=== PATIENT | male | born 1980 | race Caucasian/White ===

== ENCOUNTER 2016-11-05 13:57 | Outpatient (CLI) | payer BC ==
[~2016-11-05 13:57] MED LIST: ASPI-266 PO; ELVI1TAB PO; MULT-517 PO; NF-ESOM40C PO; OFLO5DRO7 EACH EAR
== END 2016-11-05 14:45 | disposition home or self-care (01) ==
LOC: SLEEP 13:57
PROVIDERS: ATTEND Internal Medicine Cardiovascular Disease
DX: G47.33 Obstructive sleep apnea (adult) (pediatric) (principal); I10 Essential (primary) hypertension

== ENCOUNTER 2016-12-03 20:45 | Outpatient (CLI) | payer BC ==
--- OUTSIDE RECORDS SUMMARY | 2016-12-03 20:55 | XMS REPORT | Continuity of Care Document ---
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 Medications Current Home Medications Medication Dose Units Route Directions Days/Qty Instructions Start Date Elvitegr/Cobicist/Emtric/Tenof 1 Each 1 Each Oral Daily 01/28/15 Esomeprazole Magnesium 40 Mg 40 Mg Oral Twice A Day 30 01/28/15 Aspirin 81 Mg 81 Mg Oral Daily 01/28/15 Multivitamins 1 Tab 1 Tab Oral Daily 01/28/15 Ofloxacin 5 Ml 3 Drops Each Ear Twice A Day 5 Days 01/30/15 Social History Social History Problem Response Recorded Date/Time Alcohol Use Denies Use 01/30/2015 7:47am Recreational Drug Use No 01/30/2015 7:47am Sexually Transmitted Disease No 01/30/2015 7:47am HIV/AIDS Yes 01/30/2015 7:47am Sexually Transmitted Disease No 01/30/2015 7:47am Hospital Discharge Instructions No hospital discharge instructions. Plan of Care Discharge Date 11/05/16 2:45pm Prescriptions See Medication Section Functional Status No functional status results. Allergies, Adverse Reactions, Alerts Allergen Type Severity Reaction Status Last Updated NSAIDS (Non-Steroidal Anti-Inflammatory Drug) ([id number]) Allergy Unknown Active 01/28/15 azithromycin ([id number]) Allergy Unknown ITCHINGS, RASH, HIVES Active Immunizations No immunization records. Vital Signs No known vital signs results. Results No known relevant diagnostic tests, laboratory data and/or discharge summary. Procedures No known history of procedures. Encounters Encounter Location Arrival/Admit Date Discharge/Depart Date Attending Provider Departed Clinic [facility] 11/05/16 1:57pm 11/05/16 2: 45pm LEANDRO ARENAS MD
== END 2016-12-04 06:05 | disposition home or self-care (01) ==
LOC: SLEEP 20:45
PROVIDERS: ATTEND Internal Medicine Cardiovascular Disease
DX: G47.33 Obstructive sleep apnea (adult) (pediatric) (principal); R06.83 Snoring; I10 Essential (primary) hypertension
CPT/HCPCS: 95811

== ENCOUNTER 2016-12-18 16:31 | Emergency (ER) | payer BC ==
[~2016-12-18] VITALS: Ht 175.3 cm; Wt 113.4 kg
--- OUTSIDE RECORDS SUMMARY | 2016-12-18 16:35 | XMS REPORT | Continuity of Care Document ---
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 Name Role Phone SARAH JAIMES DO PCP Insurance Providers Payer Name Policy Number Subscriber Name Relationship [facility] [id number] Lui Barry 18 Self / Same As Patient Advance Directives Directive Response Recorded Date/Time Advance Directives No 01/30/15 7:47am Health Care Power of Mortgage Processing Clerk No 01/30/15 7:47am Organ Donor No 01/30/15 [...] Status Last Updated NSAIDS (Non-Steroidal Anti-Inflammatory Drug) ([id number]) Allergy Unknown Active 01/28/15 azithromycin ([id number]) Allergy Unknown ITCHINGS, RASH, HIVES Active Immunizations No immunization records. Vital Signs No known vital signs results. Results No known relevant diagnostic tests, laboratory data and/or discharge summary. Procedures No known history of procedures. Encounters Encounter Location Arrival/Admit Date Discharge/Depart Date Attending Provider Departed Clinic [facility] 11/05/16 1:57pm 11/05/16 2: 45pm LEANDRO ARENAS MD
[2016-12-18] MEDS ORDERED: [UNRECOGNIZED DRUG - REMARK] (16:53)
[2016-12-18] MEDS ORDERED: FEXO1TAB43 PO (16:53)
--- NOTE | 2016-12-18 17:03 | ED Abdominal Pain ---
General Chief Complaint: Abdominal/GI Problems Stated Complaint: R SIDE ABD PAIN Nursing Triage Note: To ER with complaints of RUQ pain for the past 2-3 days. Sepsis Screen: No Definite Risk Source of Information: Patient Exam Limitations: No Limitations History of Present Illness Time Seen By Provider: 17:01 Initial Comments To ER with right upper quadrant abdominal pain constant but waxing and waning over the past 2-3 days. He does not have any associated nausea or vomiting. No fevers or chills. No cough or shortness of breath. No constipation or diarrhea. He has had this pain before but ignored it as it would resolve spontaneously. He last had eggs to eat at about 11 a.m. today which did not affect the pain, neither worsening nor alleviating the pain. He is HIV positive on Striblid. Timing/Duration: 2-3 Days Severity/Quality: Moderate, Cramping Location: RUQ Radiation: Back Activities at Onset: None Associated Symptoms: Denies Symptoms Allergies and Home Medications Allergies Coded Allergies: NSAIDS (Non-Steroidal Anti-Inflamma (Unverified Allergy, Unknown, 01/28/15) azithromycin (Unverified Allergy, Unknown, ITCHINGS, RASH, HIVES, 01/28/15) Home Medications (Reported) Aspirin 81 Mg Tablet. 81 MG PO DAILY (Reported) Elvitegr/Cobicist/Emtric/Tenof 1 Each Tablet 1 EACH PO DAILY (Reported) Esomeprazole Mag Trihydrate 40 Mg Capsule. #30 40 MG PO BID (Reported) Fexofenadine/Pseudoephedrine 1 Each Tab.er.24h 1 EACH PO DAILY (Reported) Multivitamins 1 Tab Tablet 1 TAB PO DAILY (Reported) Review of Systems Constitutional: see HPINo chills, No fever EENTM: No Symptoms Reported Respiratory: See HPIDenies Cough Gastrointestinal: See HPI Abdominal Pain Genitourinary: No Symptoms Reported Musculoskeletal: no symptoms reported Skin: no symptoms reported Psychiatric/Neurological: No Symptoms Reported Endocrine: No Symptoms Reported Hematologic/Lymphatic: No Symptoms Reported Past Canvzzw-Akodwf-Efvlbk Hx Patient Social History Alcohol Use: Denies Use Recreational Drug Use: No Smoking Status: Never a Smoker 2nd Hand Smoke Exposure: No Recent Foreign Travel: No Contact w/Someone Who Travel: No Recent Infectious Disease Expo: No Recent Hopitalizations: No Immunizations Up To Date Tetanus Booster (TDap): Less than 5yrs PED Vaccines UTD: Yes Seasonal Allergies Seasonal Allergies: No Surgeries HX Surgeries: Yes (EAR TUBES, HYDROCEPHALUS SURGERY, LEFT KNEE ACL, ) Surgeries: Orthopedic Respiratory Hx Respiratory Disorders: Yes Respiratory Disorders: Pneumonia Cardiovascular Hx Cardiac Disorders: Yes (BICUSPID AORTIC VALVE) Neurological Hx Neurological Disorders: Yes (SEIZURE 1 TIME) Reproductive System Hx Reproductive Disorders: No Sexually Transmitted Disease: No HIV/AIDS: Yes Genitourinary Hx Genitourinary Disorders: Yes (BICUSPID AORTIC VALVE) Gastrointestinal Hx Gastrointestinal Disorders: No Musculoskeletal Hx Musculoskeletal Disorders: No (ACL) Endocrine Hx Endocrine Disorders: No HEENT HX ENT Disorders: Yes (GLASSES) HEENT Disorders: Chronic Ear Infection Loss of Vision: Denies Hearing Impairment: Denies Cancer Hx Cancer: No Psychosocial Hx Psychiatric Problems: No Integumentary HX Skin/Integumentary Disorder: No Blood Transfusions Hx Blood Disorders: No Adverse Reaction to a Blood Tr: No Physical Exam Vital Signs VS - Last 72 Hours, by Label 12/18/16 16:40 Temp 98.5 Pulse 106 Resp 18 B/P 125/99 Pulse Ox 95 O2 Delivery Room Air Capillary Refill : Less Than 3 Seconds General Appearance: WD/WN no apparent distress HEENT: PERRL/EOMI normal ENT inspection Neck: non-tender full range of motion Respiratory: normal breath sounds no respiratory distress no accessory muscle use Cardiovascular: regular rate, rhythm no murmur Gastrointestinal: normal bowel sounds soft tenderness (RUQ) Extremities: normal range of motion non-tender Neurologic/Psychiatric: alert normal mood/affect oriented x 3 Skin: normal color warm/dry Progress/Results/Core Measures Results/Orders Lab Results Laboratory Tests Test 12/18/16 16:40 Range/Units Alanine Aminotransferase (ALT/SGPT) 71 H 0-55 U/L Albumin 4.2 3.2-4.5 G/DL Alkaline Phosphatase 69 40-136 U/L Anion Gap 10 5-14 MMOL/L Aspartate Amino Transf (AST/SGOT) 30 5-34 U/L BUN/Creatinine Ratio 12 Basophils # (Auto) 0.0 0.0-0.1 10^3/uL Basophils (%) (Auto) 0 0-10 % Blood Urea Nitrogen 18 7-18 MG/DL Calcium Level 8.7 8.5-10.1 MG/DL Carbon Dioxide Level 24 21-32 MMOL/L Chloride Level 108 H 98-107 MMOL/L Creatinine 1.51 H 0.60-1.30 MG/DL Eosinophils # (Auto) 0.2 0.0-0.3 10^3/uL Eosinophils (%) (Auto) 4 0-10 % Estimat Glomerular Filtration Rate 52 Glucose Level 91 70-105 MG/DL Hematocrit 49 40-54 % Hemoglobin 16.1 13.3-17.7 G/DL Lipase 42 8-78 U/L Lymphocytes # (Auto) 1.8 1.0-4.0 X 10^3 Lymphocytes (%) (Auto) 27 12-44 % Mean Corpuscular Hemoglobin 29 25-34 PG Mean Corpuscular Hemoglobin Concent 33 32-36 G/DL Mean Corpuscular Volume 88 80-99 FL Mean Platelet Volume 10.4 7.4-10.4 FL Monocytes # (Auto) 1.0 0.0-1.0 X 10^3 Monocytes (%) (Auto) 15 H 0-12 % Neutrophils # (Auto) 3.7 1.8-7.8 X 10^3 Neutrophils (%) (Auto) 55 42-75 % Platelet Count 240 130-400 10^3/uL Potassium Level 4.3 3.6-5.0 MMOL/L Red Blood Count 5.49 4.35-5.85 10^6/uL Red Cell Distribution Width 13.0 10.0-14.5 % Sodium Level 142 135-145 MMOL/L Total Bilirubin 0.7 0.1-1.0 MG/DL Total Protein 6.5 6.4-8.2 G/DL White Blood Count 6.7 4.3-11.0 10^3/uL My Orders Orders-HAI BUSTOS 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 Cbc With Automated Diff (12/18/16 17:00) Comprehensive Metabolic Panel (12/18/16 17:00) Lipase (12/18/16 17:00) Ua Culture If Indicated (12/18/16 17:00) Saline Lock/Iv-Start (12/18/16 17:00) Chest Pa/Lat (2 View) (12/18/16 17:00) Us Gallbladder [id number] (12/18/16 17:00) Ct Abd/Pelvis Wo(Kidney Stone) (12/18/16 18:10) Antacid Suspension (Mylanta Suspension (12/18/16 19:15) Lidocaine 2% Viscous 15 Ml (Xylocaine Vi (12/18/16 19:15) Rx-Tramadol Hcl (Rx-Ultram) (12/18/16 19:23) Medications Given in ED Current Medications Medications Dose Ordered Sig/Yaron Route Start Time Stop Time Status Last Admin Dose Admin Al Hydrox/Mg Hydrox/Simethicone 30 ml ONCE ONCE PO 12/18/16 19:15 12/18/16 19:16 DC 12/18/16 19:21 30 ML Lidocaine HCl 15 ml ONCE ONCE PO 12/18/16 19:15 12/18/16 19:16 DC 12/18/16 19:21 15 ML Vital Signs/I&O Vital Sign - Last 12Hours 12/18/16 16:40 Temp 98.5 Pulse 106 Resp 18 B/P 125/99 Pulse Ox 95 O2 Delivery Room Air Blood Pressure Mean: 108 Diagnostic Imaging Diagonstic Imaging: CT Comments NAME: [facility] REC#: [id number] PT STATUS: REG ER : 1980 PHYSICIAN: HAI BUSTOS APRN ADMIT DATE: 12/18/16/ER Draft Date of Exam:12/18/16 CT ABD/PELVIS WO(KIDNEY STONE) Procedure: CT urinary tract, rule out kidney stone. Technique: Multiple contiguous axial images were obtained through the abdomen and pelvis without the use of intravenous contrast. Indication: Right flank pain for four days. Comparison: 08/14/2015. Discussion: The visualized lung bases are well aerated. Normal heart size. No pleural or pericardial fluid. Fatty infiltration of the liver appears new. The gallbladder is contracted. Small hiatal hernia. The spleen, pancreas and adrenal glands are unremarkable. 3 mm nonobstructing right renal calculus is present. No hydronephrosis or ureteral stone identified. The urinary bladder is unremarkable. Diverticulosis with no secondary evidence for diverticulitis. No ascites or pathologically enlarged lymph node is identified. The prostate gland is unremarkable. No acute osseous abnormality. Impression: 1. There is a 3 mm nonobstructing right renal calculus. 2. Diverticulosis. 3. Small hiatal hernia. 4. Fatty infiltration of the liver. Dictated on workstation # [id number] Dict: 12/18/161912 Trans: 12/18/161916 [facility] [id number] Interpreted by: YENIFER LYNN MD Electronically signed by: NAME: [facility] REC#: [id number] PT STATUS: REG ER : 1980 PHYSICIAN: HAI BUSTOS APRN ADMIT DATE: 12/18/16/ER Draft Date of Exam:12/18/16 US GALLBLADDER [id number] PROCEDURE: US Gallbladder. TECHNIQUE: Multiple real-time grayscale images were obtained over the right upper quadrant in various projections. INDICATION: Right upper quadrant pain. COMPARISON: None. DISCUSSION: Sonographic evaluation of the right upper quadrant was performed. The liver parenchyma is diffusely hyperechoic and difficult to penetrate consistent with fatty infiltration. The liver is normal in size. No discrete hepatic mass identified. The gallbladder appears normal without evidence of cholelithiasis, wall thickening, or pericholecystic fluid. No evidence of intrahepatic biliary duct dilatation. The common bile duct and pancreas were obscured due to overlying bowel gas. The right kidney appears normal in echotexture and size without evidence of hydronephrosis or renal mass. The right kidney measures 11.7 cm. There is no ascites or abnormal bowel loops identified. No sonographic Sandhu sign was reported. IMPRESSION: 1. Fatty infiltration of liver. 2. Limited visualization of the midline structures due to overlying bowel gas. Dictated on workstation # [id number] Dict: 12/18/161813 Trans: 12/18/161816 [facility] [id number] Interpreted by: YENIFER LYNN MD Electronically signed by: NAME: [facility] REC#: [id number] PT STATUS: REG ER : 1980 PHYSICIAN: HAI BUSTOS APRN ADMIT DATE: 12/18/16/ER Draft Date of Exam:12/18/16 CHEST PA/LAT (2 VIEW) INDICATION: Chest pain and right upper quadrant pain. DISCUSSION: Two views of the chest were obtained, comparison 12/17/2015. No adverse interval change. The heart and lungs are normal. No osseous abnormality. IMPRESSION: 1. Stable negative chest. Dictated on workstation # [id number] Dict: 12/18/16 1728 Trans: 12/18/16 1729 [facility] [id number] Interpreted by: YENIFER LYNN MD Electronically signed by: Departure Impression Impression: Primary Impression: Abdominal Pain Disposition: 01 HOME, SELF-CARE Condition: Stable Departure-Patient Inst. Decision time for Depature: 19:24 Referrals: SARAH LOPEZ DO (PCP/Family) Primary Care Physician Patient Instructions: No Instuctions Given Add. Discharge Instructions: 1. Call Dr. Lopez tomorrow morning for an appointment to be seen and further evaluation 2. Return to the emergency room for any worsening pain, fevers or other concerns 3. I have sent Dr. Lopez a copy of your labs and CT results. All discharge instructions reviewed with patient and/or family. Voiced understanding. Copy Copies To 1: SARAH LOPEZ PETER J APRN Dec 18, 2016 17:03
[2016-12-18 17:06] LABS: BASOPHILS % (AUTO) 0 % (0-10); EOSINOPHILS # (AUTO) 0.2 10^3/uL (0.0-0.3); EOSINOPHILS % (AUTO) 4 % (0-10); LYMPHOCYTES # (AUTO) 1.8 X 10^3 (1.0-4.0); LYMPHOCYTES % (AUTO) 27 % (12-44); MEAN CORPUSCULAR HEMOGLOBIN 29 PG (25-34); MEAN CORPUSCULAR HGB CONC 33 G/DL (32-36); MEAN CORPUSCULAR VOLUME 88 FL (80-99); MEAN PLATELET VOLUME 10.4 FL (7.4-10.4); MONOCYTES % (AUTO) 15 % (0-12); NEUTROPHILS # (AUTO) 3.7 X 10^3 (1.8-7.8); NEUTROPHILS % (AUTO) 55 % (42-75); PLATELET COUNT 240 10^3/uL (130-400); RED BLOOD COUNT 5.49 10^6/uL (4.35-5.85); WHITE BLOOD COUNT 6.7 10^3/uL (4.3-11.0)
[2016-12-18 17:18] LABS: ALBUMIN 4.2 G/DL (3.2-4.5); BILIRUBIN,TOTAL 0.7 MG/DL (0.1-1.0); CALCIUM 8.7 MG/DL (8.5-10.1); CREATININE SERUM 1.51 MG/DL (0.60-1.30); POTASSIUM 4.3 MMOL/L (3.6-5.0); TOTAL PROTEIN 6.5 G/DL (6.4-8.2)
--- NOTE | 2016-12-18 17:29 | Diagnostic Imaging Report ---
INDICATION: Chest pain and right upper quadrant pain. DISCUSSION: Two views of the chest were obtained, comparison 12/17/2015. No adverse interval change. The heart and lungs are normal. No osseous abnormality. IMPRESSION: 1. Stable negative chest. Dictated by: Dictated on workstation # [id number]
--- NOTE | 2016-12-18 18:18 | Diagnostic Imaging Report ---
PROCEDURE: US Gallbladder. TECHNIQUE: Multiple real-time grayscale images were obtained over the right upper quadrant in various projections. INDICATION: Right upper quadrant pain. COMPARISON: None. DISCUSSION: Sonographic evaluation of the right upper quadrant was performed. The liver parenchyma is diffusely hyperechoic and difficult to penetrate consistent with fatty infiltration. The liver is normal in size. No discrete hepatic mass identified. The gallbladder appears normal without evidence of cholelithiasis, wall thickening, or pericholecystic fluid. No evidence of intrahepatic biliary duct dilatation. The common bile duct and pancreas were obscured due to overlying bowel gas. The right kidney appears normal in echotexture and size without evidence of hydronephrosis or renal mass. The right kidney measures 11.7 cm. There is no ascites or abnormal bowel loops identified. No sonographic Sandhu sign was reported. IMPRESSION: 1. Fatty infiltration of liver. 2. Limited visualization of the midline structures due to overlying bowel gas. Dictated by: Dictated on workstation # [id number]
[2016-12-18] MEDS ORDERED: ANTACID SUSP 30 ML UDC (MYLANTA) PO ONE (19:15)
[2016-12-18] MEDS ORDERED: LIDOCAINE 2% VISCOUS 15 ML UDC PO ONE (19:15)
--- NOTE | 2016-12-18 19:18 | Diagnostic Imaging Report ---
Procedure: CT urinary tract, rule out kidney stone. Technique: Multiple contiguous axial images were obtained through the abdomen and pelvis without the use of intravenous contrast. Indication: Right flank pain for four days. Comparison: 08/14/2015. Discussion: The visualized lung bases are well aerated. Normal heart size. No pleural or pericardial fluid. Fatty infiltration of the liver appears new. The gallbladder is contracted. Small hiatal hernia. The spleen, pancreas and adrenal glands are unremarkable. 3 mm nonobstructing right renal calculus is present. No hydronephrosis or ureteral stone identified. The urinary bladder is unremarkable. Diverticulosis with no secondary evidence for diverticulitis. No ascites or pathologically enlarged lymph node is identified. The prostate gland is unremarkable. No acute osseous abnormality. Impression: 1. There is a 3 mm nonobstructing right renal calculus. 2. Diverticulosis. 3. Small hiatal hernia. 4. Fatty infiltration of the liver. Dictated by: Dictated on workstation # [id number]
[2016-12-18] MEDS ORDERED: RX-TRAMADOL 50 MG (ULTRAM) TAB PPK#4 PO STA (19:23)
[2016-12-18] MEDS ORDERED: NS IV 500 ML 500 ML ONE (19:31)
[2016-12-18 19:37] LABS: BILIRUBIN,URINE NEGATIVE (NEGATIVE); KETONES,URINE NEGATIVE (NEGATIVE); LEUKOCYTE ESTERASE ,URINE NEGATIVE (NEGATIVE); NITRITE,URINE NEGATIVE (NEGATIVE); PH,URINE 6 (5-9); PROTEIN,URINE NEGATIVE (NEGATIVE); UROBILINOGEN,URINE NORMAL (NORMAL)
[2016-12-18] MEDS ORDERED: NS IV 500 ML 500 ML IV SCH (19:45)
[2016-12-18 20:21] VITALS: BP 127/85
== END 2016-12-18 20:21 | disposition home or self-care (01) ==
LOC: EDUNIT# 16:31 → ER 16:32
DX: R10.11 Right upper quadrant pain (principal); N20.0 Calculus of kidney; K57.30 Diverticulosis of large intestine without perforation or abscess without bleeding; K76.0 Fatty (change of) liver, not elsewhere classified; K44.9 Diaphragmatic hernia without obstruction or gangrene
CPT/HCPCS: 36415; 71020; 74176; 76705; 80053; 81000; 83690; 85025; 96360

== ENCOUNTER 2016-12-23 09:19 | Emergency (ER) | payer BC ==
[~2016-12-23] VITALS: Ht 175.3 cm; Wt 113.4 kg
[~2016-12-23 09:19] MED LIST changes: +FEXO1TAB43 PO; +[UNRECOGNIZED DRUG - REMARK]
--- OUTSIDE RECORDS SUMMARY | 2016-12-23 09:25 | XMS REPORT | Continuity of Care Document ---
Author Author [facility] Organization [facility] Address Unknown Phone Unavailable Care Team Providers Care Surg Rn Name Role Phone SARAH JAIMES DO PCP Insurance Providers Payer Name Policy Number Subscriber Name Relationship [facility] [id number] Lui Barry 18 Self / Same As Patient Advance Directives Directive Response Recorded Date/Time Advance Directives No 01/30/15 7:47am Health Care Power of Tavern Operator No 01/30/15 7:47am Organ Donor No 01/30/15 [...] Status Last Updated NSAIDS (Non-Steroidal Anti-Inflammatory Drug) ([id number]) Allergy Unknown Active 01/28/15 azithromycin ([id number]) Allergy Unknown ITCHINGS, RASH, HIVES Active Immunizations No immunization records. Vital Signs No known vital signs results. Results No known relevant diagnostic tests, laboratory data and/or discharge summary. Procedures No known history of procedures. Encounters Encounter Location Arrival/Admit Date Discharge/Depart Date Attending Provider Departed Clinic [facility] 11/05/16 1:57pm 11/05/16 2: 45pm LEANDRO ARENAS MD
--- NOTE | 2016-12-23 10:17 | ED General ---
General Chief Complaint: Chest Wall/Rib Pain Stated Complaint: RIGHT RIB PAIN Nursing Triage Note: PT CO OF R RIB PAIN, PT STATES HAS GALLSTONES AND KIDNEY STONE ON R SIDE, GETTING KIDNEY STONE BLASTED ON MONDAY, HAS NO PAIN MEDS. PT STATES UNABLE TO GET INTO 'S OFFICE Nursing Sepsis Screen: No Definite Risk Source of Information: Patient Exam Limitations: No Limitations History of Present Illness Time Seen by Provider: 09:45 Initial Comments The patient is a 36-year-old white male who was here on 12/18. The complaint at that time and also today was right upper quadrant and flank pain. He was discovered to have a stone in the right kidney but no evidence of ureteral stone or obstruction. He has since seen Dr. Lopez twice and Dr. Monsivais. He states that he has not had any pain medications and examination of the previous record and [facility] confirms this to be true. He reports that he has been constant pain. There is been no fever. He has not been able to sleep at night. He states that he had attempted to touch with Dr. Lopez today and there was no one at the office. Timing/Duration: 5-6 Days Modifying Factors: improves with Movement Allergies and Home Medications Allergies Coded Allergies: NSAIDS (Non-Steroidal Anti-Inflamma (Unverified Allergy, Unknown, 01/28/15) azithromycin (Unverified Allergy, Unknown, ITCHINGS, RASH, HIVES, 01/28/15) Home Medications (Reported) Aspirin 81 Mg Tablet. 81 MG PO DAILY (Reported) Elvitegr/Cobicist/Emtric/Tenof 1 Each Tablet 1 EACH PO DAILY (Reported) Esomeprazole Mag Trihydrate 40 Mg Capsule. #30 40 MG PO BID (Reported) Fexofenadine/Pseudoephedrine 1 Each Tab.er.24h 1 EACH PO DAILY (Reported) Multivitamins 1 Tab Tablet 1 TAB PO DAILY (Reported) Constitutional: see HPI EENTM: no symptoms reported Respiratory: no symptoms reported Gastrointestinal: no symptoms reported Genitourinary: other (right flank and CVA pain) Skin: no symptoms reported Psychiatric/Neurological: No Symptoms Reported Past Nkdzyfs-Fbduoh-Reuifp Hx Patient Social History Alcohol Use: Denies Use Recreational Drug Use: No Smoking Status: Never a Smoker 2nd Hand Smoke Exposure: No Recent Foreign Travel: No Contact w/Someone Who Travel: No Recent Infectious Disease Expo: No Recent Hopitalizations: No Immunizations Up To Date Tetanus Booster (TDap): Less than 5yrs PED Vaccines UTD: Yes Date of Influenza Vaccine: Jun 09, 2016 Seasonal Allergies Seasonal Allergies: No Surgeries HX Surgeries: Yes (EAR TUBES, HYDROCEPHALUS SURGERY, LEFT KNEE ACL, ) Surgeries: Orthopedic Respiratory Hx Respiratory Disorders: Yes Respiratory Disorders: Pneumonia Cardiovascular Hx Cardiac Disorders: Yes (BICUSPID AORTIC VALVE) Neurological Hx Neurological Disorders: Yes (SEIZURE 1 TIME) Reproductive System Hx Reproductive Disorders: No Sexually Transmitted Disease: No HIV/AIDS: Yes Genitourinary Hx Genitourinary Disorders: Yes (BICUSPID AORTIC VALVE) Gastrointestinal Hx Gastrointestinal Disorders: No Musculoskeletal Hx Musculoskeletal Disorders: No (ACL) Endocrine Hx Endocrine Disorders: No HEENT HX ENT Disorders: Yes (GLASSES) HEENT Disorders: Chronic Ear Infection Loss of Vision: Denies Hearing Impairment: Denies Cancer Hx Cancer: No Psychosocial Hx Psychiatric Problems: No Integumentary HX Skin/Integumentary Disorder: No Blood Transfusions Hx Blood Disorders: Yes (HIV) Adverse Reaction to a Blood Tr: No Physical Exam Vital Signs Vital Sign - Last 12Hours 12/23/16 09:31 Temp 95.3 Pulse 82 Resp 18 B/P 110/97 Pulse Ox 96 O2 Delivery Room Air Capillary Refill : Less Than 3 Seconds General Appearance: Mild Distress Moderate Distress Eyes: Bilateral Eye Normal Inspection HEENT: Normal ENT Inspection Neck: Normal Inspection Respiratory: Chest Non Tender Lungs Clear Normal Breath Sounds No Accessory Muscle Use No Respiratory Distress Cardiovascular: Regular Rate, Rhythm No Edema No Gallop No JVD No Murmur Normal Peripheral Pulses Progress/Results/Core Measures Results/Orders Vital Signs/I&O Vital Sign - Last 12Hours 12/23/16 09:31 Temp 95.3 Pulse 82 Resp 18 B/P 110/97 Pulse Ox 96 O2 Delivery Room Air Blood Pressure Mean: 101 Departure Impression Impression: Primary Impression: right flank pain Disposition: 01 HOME, SELF-CARE Condition: Stable/Unchanged Departure-Patient Inst. Decision time for Depature: 10:17 Referrals: SARAH LOPEZ DO (PCP/Family) Primary Care Physician Add. Discharge Instructions: All discharge instructions reviewed with patient and/or family. Voiced understanding. Plenty of liquids Lortab as prescribed Keep appointments as presently scheduled Scripts [ hydrocodone] No Conflict Check7.5 4 times a day #15 Prov:MANISH VINCENT MD 12/23/16 MANISH VINCENT MD Dec 23, 2016 10:17
[2016-12-23] MEDS ORDERED: hydrocodone (10:23)
[2016-12-23 10:36] VITALS: BP 123/86
== END 2016-12-23 10:36 | disposition home or self-care (01) ==
LOC: EDUNIT# 09:19 → ER 09:22
DX: R10.31 Right lower quadrant pain (principal); N20.0 Calculus of kidney; Z79.82 Long term (current) use of aspirin; Z79.899 Other long term (current) drug therapy
CPT/HCPCS: 99283

== ENCOUNTER → 2016-12-26 | Outpatient (CLI) | payer BC ==
[~2016-12-26] MED LIST changes: +hydrocodone
--- OUTSIDE RECORDS SUMMARY | 2016-12-26 09:17 | XMS REPORT | Continuity of Care Document ---
Author Author [facility] Organization [facility] Address Unknown Phone Unavailable Care Team Providers Care Marketing Associate Name Role Phone SARAH JAIMES DO PCP Insurance Providers Payer Name Policy Number Subscriber Name Relationship [facility] [id number] Lui Barry 18 Self / Same As Patient Advance Directives Directive Response Recorded Date/Time Advance Directives No 01/30/15 7:47am Health Care Power of Sap Consultant No 01/30/15 7:47am Organ Donor No 01/30/15 [...] Status Last Updated NSAIDS (Non-Steroidal Anti-Inflammatory Drug) ([id number]) Allergy Unknown Active 01/28/15 azithromycin ([id number]) Allergy Unknown ITCHINGS, RASH, HIVES Active Immunizations No immunization records. Vital Signs No known vital signs results. Results No known relevant diagnostic tests, laboratory data and/or discharge summary. Procedures No known history of procedures. Encounters Encounter Location Arrival/Admit Date Discharge/Depart Date Attending Provider Departed Clinic [facility] 11/05/16 1:57pm 11/05/16 2: 45pm LEANDRO ARENAS MD
--- NOTE | 2016-12-26 11:58 | Diagnostic Imaging Report ---
INDICATION: Right flank pain. KUB at 09:34 a.m. FINDINGS: Bowel gas pattern is normal. There are no pathologic masses or calcifications. Osseous structures are normal. IMPRESSION: Negative abdomen. Dictated by: Dictated on workstation # [id number]
== END ==
LOC: RAD 09:12
PROVIDERS: ATTEND Family Medicine
DX: R07.81 Pleurodynia (principal)
CPT/HCPCS: 74000

== ENCOUNTER 2017-01-08 08:00 | Outpatient (RCR) | payer BC ==
--- OUTSIDE RECORDS SUMMARY | 2016-12-26 10:43 | XMS REPORT | Continuity of Care Document ---
Author Author [facility] Organization [facility] Address Unknown Phone Unavailable Care Team Providers Care Software Support Technician Name Role Phone SARAH JAIMES DO PCP Insurance Providers Payer Name Policy Number Subscriber Name Relationship [facility] [id number] Lui Barry 17 Self / Same As Patient Advance Directives Directive Response Recorded Date/Time Advance Directives No 01/30/15 7:47am Health Care Power of Billet Shearer No 01/30/15 7:47am Organ Donor No 01/30/15 [...] Status Last Updated NSAIDS (Non-Steroidal Anti-Inflammatory Drug) ([id number]) Allergy Unknown Active 01/28/15 azithromycin ([id number]) Allergy Unknown ITCHINGS, RASH, HIVES Active Immunizations No immunization records. Vital Signs No known vital signs results. Results No known relevant diagnostic tests, laboratory data and/or discharge summary. Procedures No known history of procedures. Encounters Encounter Location Arrival/Admit Date Discharge/Depart Date Attending Provider Departed Clinic [facility] 11/05/16 1:57pm 11/05/16 2: 45pm LEANDRO ARENAS MD
== END 2017-03-26 | disposition home or self-care (01) ==
LOC: LAB 08:00
PROVIDERS: ATTEND Urology
DX: N20.0 Calculus of kidney (principal)
CPT/HCPCS: 36415; 82140; 82340; 82507; 82570; 83735; 83945; 83986; 84105; 84133; 84300; 84392; 84560

== ENCOUNTER → 2017-01-17 | Outpatient (CLI) | payer BC ==
[~2017-01-17] MED LIST changes: +CATHETER FLUSH 10 ML SYR IV PRN
--- NOTE | 2017-01-17 14:32 | Diagnostic Imaging Report ---
EXAMINATION: HIDA with EF measurements Indication: Abdominal pain TECHNIQUE: After the intravenous administration of 5 mCi of Tc 99m Choletec, imaging over the abdomen was obtained. This was followed by administration of Ensure orally to stimulate intrinsic CCK secretion, followed by continued imaging with ejection fraction measured. FINDINGS: There is homogeneous uptake in the liver with prompt bile duct and gallbladder filling seen. Bowel activity is seen at 65 minutes. Based on further imaging and gallbladder area of interest activity measurements after the administration of Ensure, the gallbladder ejection fraction is estimated at 69%. The third image on this exam with the graph better demonstrate the gallbladder washout than image 2. IMPRESSION: 1. Normal hepatobiliary uptake and Gallbladder filling. 2. Normal gallbladder ejection fraction. Dictated by: Dictated on workstation # [id number]
== END ==
LOC: CARD 11:16
PROVIDERS: ATTEND Nurse Practitioner
DX: R10.11 Right upper quadrant pain (principal)
CPT/HCPCS: 78227